=== PATIENT | female | born 1990 | race Caucasian/White ===

== ENCOUNTER 2017-11-05 12:43 | Emergency (ER) | payer MEDICAID, OTHER ==
[2017-11-05 12:58] VITALS: BMI 24.1
[2017-11-05 13:02] VITALS: RESP 16; O2SAT 100
[2017-11-05] MEDS ORDERED: Belladonna-Phenobarbital PO STA (13:32)
[2017-11-05] MEDS ORDERED: Aluminum Hydroxide/Magnesium Hydroxide Susp (30 mL) PO STA (13:32)
[2017-11-05] MEDS ORDERED: Sodium Chloride 0.9% 1,000 ML IV ONE (13:32)
--- NOTE | 2017-11-05 13:42 | C.PDOC ---
History Of Present Illness <Irena Thibodeaux - Last Filed: 11/05/17 19:20> <Ferny Simmons DO - Last Filed: 11/05/17 23:55> Patient is a 27 year old female who reports for 1.5 day history of persistent nausea and vomiting that started after she had a few alcoholic drinks at a family event. She states her symptoms worsened last night and today, stating that she feels the need to vomit "every few seconds" and is unable to keep water or bread down. She states she feels lightheaded, weak, nauseated. She started her period today, and states she is not likely to be . She denies constipation, diarrhea, her last bowel movement this morning was normal. She denies fevers, chills, chest pain, shortness of breath, abdominal pain, dysuria, urinary frequency, leg pain. (Irena Thibodeaux) <Irena Thibodeaux - Last Filed: 11/05/17 19:20> <Ferny Simmons DO - Last Filed: 11/05/17 23:55> Chief Complaint (Nursing): GI Problem Past Medical History - Medical History PMH: Gastritis (history of gastritis a few years ago, after she ate acidic foods ) Surgical History: Appendectomy, (for placenta previa) Family History: States: Unknown Family Hx - Social History Hx Tobacco Use: No Hx Alcohol Use: Yes Hx Substance Use: No - Immunization History Hx Tetanus Toxoid Vaccination: No Hx Influenza Vaccination: No Hx Pneumococcal Vaccination: No <Irena Thibodeaux - Last Filed: 11/05/17 19:20> Vital Signs: Last Vital Signs Temp 98.2 F 11/05/17 15:16 Pulse 87 11/05/17 15:16 Resp 16 11/05/17 15:16 BP 108/70 11/05/17 15:16 Pulse Ox 100 11/05/17 19:21 Review Of Systems Constitutional: Positive for: Weakness. Negative for: Fever, Chills Cardiovascular: Positive for: Light Headedness. Negative for: Chest Pain, Palpitations Respiratory: Negative for: Shortness of Breath Gastrointestinal: Positive for: Nausea, Vomiting. Negative for: Abdominal Pain , Diarrhea, Constipation Genitourinary: Negative for: Dysuria, Frequency Skin: Negative for: Rash <Irena Thibodeaux - Last Filed: 11/05/17 19:20> Physical Exam - Physical Exam Appears: Non-toxic, No Acute Distress Skin: Warm, Dry, No Pale Head: Atraumatic, Normacephalic Eye(s): bilateral: EOMI Oral Mucosa: Dry Throat: Normal Cardiovascular: Rhythm Regular, No Murmur Respiratory: Normal Breath Sounds, No Accessory Muscle Use, No Rales, No Rhonchi , No Stridor, No Wheezing Gastrointestinal/Abdominal: Bowel Sounds, Soft, No Tenderness, No Organomegaly, No Mass, No Distention, No Guarding, No Rebound, No Ascites Back: Normal Inspection, No CVA Tenderness, No Vertebral Tenderness, No Paraspinal Tenderness Extremity: No Tenderness, No Pedal Edema, No Calf Tenderness, Other Pulses: Right Femoral: Normal, Left Dorsalis Pedis: Normal Neurological/Psych: Oriented x3 <Irena Thibodeaux - Last Filed: 11/05/17 19:20> ED Course And Treatment - Laboratory Results Result Diagrams: 11/05/17 14:04 11/05/17 14:04 Interpretation Of ECG: NSR at 84, normal axis, no ST-T wave changes. O2 Sat by Pulse Oximetry: 100 Progress Note: On re-evaluation, patient states she feels much better. She states she has not vomited in over an hour. Abdomen soft, nontender. Reevaluation Time: 14:45 Reassessment Condition: Improved <Irena Thibodeaux - Last Filed: 11/05/17 19:20> - Laboratory Results Result Diagrams: 11/05/17 14:04 11/05/17 14:04 <Ferny Simmons DO - Last Filed: 11/05/17 23:55> Medical Decision Making <Irena Thibodeaux - Last Filed: 11/05/17 19:20> <Ferny Simmons DO - Last Filed: 11/05/17 23:55> Medical Decision Making: CBC, CMP, lipase were within normal limits. Urine test negative. Patient treated with NS IV fluids, Zofran 8mg IV, GI cocktail - Maalox/viscous lidocaine/Mylanta/Donnatol with improvement of symptoms. 1445: On re-evaluation, patient states she feels much better. Abdomen soft, nontender. She states she has not had an episode of vomiting in over an hour. On discharge, patient remained afebrile, was normotensive, not tachycardic and oxygenating well. (Irena Thibodeaux) Disposition - Disposition Disposition Time: 15:50 <Irena Thibodeaux - Last Filed: 11/05/17 19:20> - Disposition Disposition Time: 14:45 <Ferny Simmons DO - Last Filed: 11/05/17 23:55> - Disposition Referrals: [facility] Deborah Forbes, [Non-Staff] - Disposition: HOME/ ROUTINE Condition: IMPROVED Additional Instructions: ARIANNA DOUGHERTY, thank you for letting us take care of you today. The emergency medical care you received today was directed at your acute symptoms. If you were prescribed any medication, please fill it and take as directed. It may take several days for your symptoms to resolve. Return to the Emergency Department if your symptoms worsen, do not improve, or if you have any other problems. Please contact your doctor or call one of the physicians/clinics you have been referred to that are listed on the Patient Visit Information form that is included in your discharge packet. Bring any paperwork you were given at discharge with you along with any medications you are taking to your follow up visit. Our treatment cannot replace ongoing medical care by a primary care provider outside of the emergency department. Thank you for allowing the [facility] team to be part of your care today. Follow up with your primary care doctor in 2-3 days for re-evaluation and further management. Prescriptions: Ranitidine HCl [Zantac] 150 mg PO BID #20 tablet Instructions: Gastritis (DC) Forms: [employer] (Nepali) - Clinical Impression Clinical Impression: Gastritis, Gastritis - PA / TEARER / Resident Statement ARIES has reviewed & agrees with the documentation as recorded. ARIES has examined the patient and agrees with the treatment plan. <Ferny Simmons DO - Last Filed: 11/05/17 23:55>
[2017-11-05] MEDS ORDERED: Aluminum Hydroxide/Magnesium Hydroxide Susp (30 mL) ONE (14:01)
[2017-11-05] MEDS ORDERED: Belladonna-Phenobarbital ONE (14:01)
[2017-11-05 14:09] LABS: BASO # 0.1 K/uL (0.0-0.2); BASO % 0.6 % (0.0-2.0); EOS % 0.2 % (0.0-4.0); HEMOGLOBIN 13.7 g/dL (11.0-16.0); LYMPH # 0.7 K/uL (1.0-4.3); LYMPH % 6.3 % (20.0-40.0); MEAN CELL VOLUME 84.9 fL (81.0-99.0); MEAN CORPUSCULAR HEMOGLOBIN 29.2 pg (27.0-31.0); MEAN CORPUSCULAR HGB CONC 34.3 g/dL (33.0-37.0); MEAN PLATELET VOLUME 8.7 fL (7.2-11.7); MONO # 0.3 K/uL (0.0-0.8); MONO % 2.7 % (0.0-10.0); NEUT # 10.3 K/uL (1.8-7.0); NEUT % 90.2 % (50.0-75.0); PLATELET COUNT 212 K/uL (130-400); RED CELL DISTRIBUTION WIDTH 13.4 % (11.5-14.5); WHITE BLOOD COUNT 11.4 K/uL (4.8-10.8)
[2017-11-05 14:21] LABS: ALB/GLOB RATIO 1.5 (1.0-2.1); ALBUMIN 4.6 g/dL (3.5-5.0); ALT/SGPT 22 U/L (9-52); AST/SGOT 20 U/L (14-36); BLOOD UREA NITROGEN 13 mg/dL (7-17); GFR NON-AFRICAN AMERICAN > 60; LIPASE 47 U/L (23-300)
[2017-11-05 15:17] VITALS: BP 108/70; PULSE 87; TEMP 98.2
[2017-11-05 15:29] LABS: LYMPHOCYTE 9 % (20-40); MONOCYTE 4 % (0-10); NEUTROPHIL 87 % (50-75); PLATELET ESTIMATE NORMAL (NORMAL); TOTAL CELLS COUNTED 100
--- NOTE | 2017-11-05 17:37 | CARD ---
APPROVED REPORT Date of service: 11/05/2017 EKG Measurement Heart [id number] <Conclusion> Normal sinus rhythm Prolonged QT Abnormal ECG
== END 2017-11-05 15:55 | disposition home or self-care (01) ==
LOC: C.ER 12:43
DX: K29.70 Gastritis, unspecified, without bleeding (principal)
CPT/HCPCS: 80053; 83690; 85025; 93005; 96361; 96374; 96375; 99284; J2405; J7030